=== PATIENT | female | born 1965 | race Caucasian/White ===

== ENCOUNTER 2017-01-10 04:37 | Inpatient (IN) | payer OTHER ==
[~2017-01-10] VITALS: Ht 160 cm; Wt 71.0 kg
[2017-01-10] MEDS ORDERED: SODIUM CHLORIDE 0.9% 1,000 ML IV ONE ×2 (05:24→08:11)
[2017-01-10] MEDS ORDERED: SODIUM CHLORIDE 0.9% 1,000ML IVBOLUS ONE (05:30)
[2017-01-10] MEDS ORDERED: ONDANSETRON 2MG/ML, 2ML IVPush ONE (05:30)
[2017-01-10] MEDS ORDERED: ONDANSETRON 2MG/ML, 2ML ONE ×2 (05:37→17:40)
[2017-01-10] MEDS ORDERED: MORPHINE SULFATE 4 MG/ML, 1ML ONE ×2 (05:37→07:12)
[2017-01-10] MEDS: MORPHINE SULFATE 4 MG/ML, 1ML IVPush PRN ×2 (05:40→07:15)
[2017-01-10 06:05] LABS: BLOOD UREA NITROGEN 11 mg/dL (7-18)
[2017-01-10] MEDS ORDERED: HYDROmorphone 1 MG/ML, 1ML IVPush PRN (08:30)
[2017-01-10] MEDS ORDERED: SODIUM CHLORIDE FLUSH 10ML SYR IVF PRN (08:30)
[2017-01-10] MEDS ORDERED: ONDANSETRON 2MG/ML, 2ML IVPush PRN ×2 (08:30→19:00)
[2017-01-10] MEDS ORDERED: ONDANSETRON ODT 4 MG PO PRN (09:30)
[2017-01-10] MEDS ORDERED: hydrALAzine 20 MG/ML, 1ML IVPush PRN (09:30)
[2017-01-10] MEDS ORDERED: POLYETHYLENE GLYCOL 17 GM PACKET PO PRN (09:30)
[2017-01-10] MEDS ORDERED: HEPARIN 5,000 UNITS/ML, 1ML SQ SCH ×2 (09:30→16:00)
[2017-01-10 10:42] VITALS: BP 152/81
[2017-01-10] MEDS: D5%-0.45NACL+KCL 20MEQ 1,000 ML IV SCH ×2 (11:50→22:54)
[2017-01-10 12:45] VITALS: BP 143/84
[2017-01-10] MEDS: morphine SULFATE 10 MG/ML, 1ML IVPush PRN (15:27)
[2017-01-10] MEDS ORDERED: MIDAZOLAM 1 MG/ML, 2ML ONE (16:51)
[2017-01-10] MEDS ORDERED: FENTANYL PF 250 MCG/5ML ONE (16:51)
[2017-01-10] MEDS ORDERED: LIDOCAINE-MPF 2% ,5ML ONE (17:15)
[2017-01-10] MEDS ORDERED: ROPIvacaine/PF 0.5%, 30 ML ONE (17:15)
[2017-01-10] MEDS ORDERED: CEFAZOLIN 1,000 MG ONE (17:40)
[2017-01-10] MEDS ORDERED: PROPOFOL 10 MG/ML, 20ML ONE (17:40)
[2017-01-10] MEDS ORDERED: KETOROLAC 30 MG/1 ML ONE (17:40)
[2017-01-10] MEDS ORDERED: DEXAMETHASONE 4 MG/ML, 1ML ONE (17:40)
[2017-01-10] MEDS ORDERED: BUPIVACAINE/PF-EPI 0.5% 1:200K ONE (18:48)
[2017-01-10] MEDS ORDERED: METOPROLOL 1 MG/ML, 5ML IV PRN (19:00)
[2017-01-10] MEDS ORDERED: PROMETHAZINE 25 MG/ML, 1ML IV PRN (19:00)
[2017-01-10] MEDS ORDERED: EPHEDRINE 50 MG/ML, 1ML IVPush PRN (19:00)
[2017-01-10] MEDS ORDERED: ACETAMINOPHEN 325 MG TABLET PO PRN (19:00)
[2017-01-10] MEDS ORDERED: MEPERIDINE/PF 25MG/0.5ML IVPush PRN (19:00)
[2017-01-10] MEDS ORDERED: OXYcodone 5 MG/5 ML ORAL.SOL UDC PO PRN (19:00)
[2017-01-10] MEDS ORDERED: hydrALAzine 20 MG/ML, 1ML IV PRN (19:00)
[2017-01-10] MEDS ORDERED: MIDAZOLAM 1 MG/ML, 2ML IV PRN (19:00)
[2017-01-10] MEDS ORDERED: FENTANYL PF 100 MCG/2ML IV PRN (19:00)
[2017-01-10] MEDS ORDERED: HYDROmorphone 1 MG/ML, 1ML IV PRN (19:00)
[2017-01-10] MEDS ORDERED: ALBUTEROL SULFATE 2.5 MG/3 ML NPPB PRN (19:00)
[2017-01-10] MEDS ORDERED: LABETALOL 5MG/ML, 20ML IV PRN (19:00)
[2017-01-10 20:29] VITALS: BP 155/88
[2017-01-10] MEDS: CEFAZOLIN PMX 2GM/50ML 50 ML IVPB SCH (22:54)
[2017-01-10 23:30] VITALS: BP 118/73
[2017-01-11 03:43] VITALS: BP 127/76
[2017-01-11] MEDS: morphine SULFATE 10 MG/ML, 1ML IVPush PRN (05:21)
[2017-01-11] MEDS: ENOXAPARIN 40 MG/0.4 ML SQ SCH (05:21)
[2017-01-11 06:01] LABS: BLOOD UREA NITROGEN 5 mg/dL (7-18)
[2017-01-11] MEDS: D5%-0.45NACL+KCL 20MEQ 1,000 ML IV SCH ×2 (06:36→16:42)
[2017-01-11] MEDS ORDERED: BISACODYL 5 MG EC TABLET PO PRN (08:00)
[2017-01-11] MEDS ORDERED: MAGNESIUM HYDROXIDE 8%, 30ML UDC PO PRN (08:00)
[2017-01-11 09:02] VITALS: BP 136/84
[2017-01-11] MEDS: DOCUSATE 100 MG CAPSULE PO SCH ×2 (09:53→21:16)
[2017-01-11] MEDS: CEFAZOLIN PMX 2GM/50ML 50 ML IVPB SCH (09:53)
[2017-01-11] MEDS: OXYcodone/APAP 5/325MG TABLET PO PRN ×4 (09:53→22:06)
[2017-01-11 15:00] VITALS: BP 117/70
[2017-01-11 19:54] VITALS: BP 136/79
[2017-01-12 01:49] VITALS: BP 109/68
[2017-01-12] MEDS: OXYcodone/APAP 5/325MG TABLET PO PRN ×4 (02:04→14:16)
[2017-01-12] MEDS: D5%-0.45NACL+KCL 20MEQ 1,000 ML IV SCH (02:30)
[2017-01-12] MEDS: ENOXAPARIN 40 MG/0.4 ML SQ SCH (05:47)
[2017-01-12 08:00] VITALS: BP 136/89
[2017-01-12] MEDS: DOCUSATE 100 MG CAPSULE PO SCH (09:12)
[2017-01-12 09:46] VITALS: BP 109/66
[2017-01-12] MEDS ORDERED: OXYC1TAB7 PO (12:28)
[2017-01-12] MEDS ORDERED: DOCU-30 PO (12:28)
== END 2017-01-12 17:07 | disposition home or self-care (01) | DRG 494 ==
LOC: ED 07:36 → EDIP 08:11 → 4EST 10:21 → 4NOR 20:51 → DCLOUNGE 01-12 17:05
PROVIDERS: ADMIT Family Medicine; ATTEND Family Medicine
PROC: 0QSK04Z Reposition Left Fibula with Internal Fixation Device, Open Approach (ICD-10-PCS; 2017-01-10)
PROC: 3E0T3BZ Introduction of Anesthetic Agent into Peripheral Nerves and Plexi, Percutaneous Approach (ICD-10-PCS; 2017-01-10)
PROC: 0QSH04Z Reposition Left Tibia with Internal Fixation Device, Open Approach (ICD-10-PCS; principal; 2017-01-10 17:00)
DX: S82.842A Displaced bimalleolar fracture of left lower leg, initial encounter for closed fracture (principal); S92.351A Displaced fracture of fifth metatarsal bone, right foot, initial encounter for closed fracture; I16.0 Hypertensive urgency; E87.6 Hypokalemia; Y93.89 Activity, other specified; Y92.89 Other specified places as the place of occurrence of the external cause; Y99.8 Other external cause status; Z82.49 Family history of ischemic heart disease and other diseases of the circulatory system; Z91.19 Patient's noncompliance with other medical treatment and regimen; Z87.442 Personal history of urinary calculi; W10.9XXA Fall (on) (from) unspecified stairs and steps, initial encounter
CPT/HCPCS: 29515; 36415; 76000; 80048; 82040; 85025; 96361; 96374; 96375; 96376; C1713; J0690; J1100; J1650; J1885; J2250; J2405; J2704; J2795; J3010; J3490; J2270; J3480; J7030

== ENCOUNTER → 2017-04-10 | Outpatient (CLI) | payer OTHER ==
[~2017-04-10] MED LIST: DOCU-30 PO; OXYC1TAB7 PO; REGADENOSON 0.4 MG/5 ML SYRINGE ONE
== END | disposition home or self-care (01) ==
LOC: CFH 07:38
PROVIDERS: ATTEND Internal Medicine Cardiovascular Disease
DX: I07.1 Rheumatic tricuspid insufficiency (principal); I10 Essential (primary) hypertension; Z86.73 Personal history of transient ischemic attack (TIA), and cerebral infarction without residual deficits
CPT/HCPCS: 78452; 93017; 93306; A9502; J2785